=== PATIENT | male | born 1970 | race Caucasian/White ===

== ENCOUNTER 2018-11-01 16:46 | Inpatient (IN) | payer OTHER ==
[2018-11-01 18:04] VITALS: BMI 25.7
[2018-11-01] MEDS ORDERED: chlordiazePOXIDE HCL 25 MG CAPSULE PO PRN (18:42)
[2018-11-01] MEDS ORDERED: BISMUTH SUBSALICYLATE 524 MG/30 ML UD PO PRN (18:42)
[2018-11-01] MEDS ORDERED: ACETAMINOPHEN 325 MG TABLET (FP) PO PRN ×2 (18:42)
[2018-11-01] MEDS ORDERED: MAG HYDROX/AL HYDROX/SIMETH 30 ML UNIT-DOSE CUP PO PRN (18:42)
[2018-11-01] MEDS ORDERED: chlordiazePOXIDE HCL 25 MG CAPSULE PO ONE (18:42)
[2018-11-01] MEDS ORDERED: MENTHOL/PHENOL 1 EACH UD MM PRN (18:42)
[2018-11-01] MEDS ORDERED: MAGNESIUM CITRATE 300 ML BOTTLE PO PRN (18:42)
[2018-11-01] MEDS ORDERED: NICOTINE POLACRILEX 4 MG GUM BUC PRN (18:42)
[2018-11-01] MEDS ORDERED: hydrOXYzine PAMOATE 25 MG CAPSULE (FP) PO PRN (18:42)
[2018-11-01] MEDS ORDERED: METHOCARBAMOL 500 MG TABLET PO PRN (18:42)
[2018-11-01] MEDS ORDERED: IBUPROFEN 400 MG TABLET (FP) PO PRN (18:42)
[2018-11-01] MEDS ORDERED: MAGNESIUM HYDROX 2400MG/30ML ORAL SUSPENSION 30 ML CUP PO PRN (18:42)
[2018-11-01] MEDS ORDERED: NICOTINE 21 MG/24 HOURS TOPICAL PATCH TD SCH (18:45)
--- NOTE | 2018-11-01 18:51 | HP ---
CIWA Score Nausea/Vomitin Muscle Tremors: 4-Moderate,w/Arms Extend Anxiety: 4-Mod. Anxious/Guarded Agitation: 3 Paroxysmal Sweats: 2 Orientation: 0-Oriented Tacttile Disturbances: 1-Very Mild Itch/Numbness Auditory Disturbances: 2-Mild Harshness/Frighten Visual Disturbances: 2-Mild Sensitivity Headache: 1-Very Mild CIWA-Ar Total Score: 21 - Admission Criteria OASAS Guidelines: Admission for Medically Managed Detox: Requires at least one of the followin. CIWA greater than 12 2. Seizures within the past 24 hours 3. Delirium tremens within the past 24 hours 4. Hallucinations within the past 24 hours 5. Acute intervention needed for co occurring medical disorder 6. Acute intervention needed for co occurring psychiatric disorder 7. Severe withdrawal that cannot be handled at a lower level of care (continued vomiting, continued diarrhea, abnormal vital signs) requiring intravenous medication and/or fluids 8. Admission ROS BHS - HPI Chief Complaint: I NEED TO DETOX Allergies/Adverse Reactions: Allergies Allergy/AdvReac Type Severity Reaction Status Date / Time ARYAN Inhibitors AdvReac Swelling Verified 11/01/18 17:49 Penicillins AdvReac Swelling Verified 11/01/18 17:49 History of Present Illness: CONSITENT ETOH USE SINCE AGE 9 NO SIGNIFICANT PERIOD ABSTINENCE 1 MONTH MAX COCAINE USE 100$ 3X WEEKLY - Ebola screening Have you traveled outside of the country in the last 21 days: No (N) Have you had contact with anyone from an Ebola affected area: No Do you have a fever: No - Review of Systems Constitutional: Loss of Appetite EENT: reports: No Symptoms Reported Respiratory: reports: No Symptoms reported Cardiac: reports: No Symptoms Reported GI: reports: Nausea, Abdominal cramping : reports: No Symptoms Reported Musculoskeletal: reports: No Symptoms Reported Integumentary: reports: No Symptoms Reported Neuro: reports: No Symptoms reported Endocrine: reports: No Symptoms Reported Hematology: reports: No Symptoms Reported Psychiatric: reports: Anxious Patient History - Patient Medical History Hx Anemia: No Hx Asthma: No Hx Chronic Obstructive Pulmonary Disease (COPD): No Hx Cancer: No Hx Cardiac Disorders: No Hx Congestive Heart Failure: No Hx Hypertension: Yes Hx Hypercholesterolemia: No Hx Pacemaker: No HX Cerebrovascular Accident: No Hx Seizures: No Hx Dementia: No Hx Diabetes: No Hx Gastrointestinal Disorders: No Hx Liver Disease: No Hx Genitourinary Disorders: No Hx Sexually Transmitted Disorders: No Hx Renal Disease (ESRD): No Hx Thyroid Disease: No Hx Human Immunodeficiency Virus (HIV): No Hx Hepatitis C: No Hx Depression: Yes Hx Suicide Attempt: No Hx Schizophrenia: No - Patient Surgical History Past Surgical History: No Hx Neurologic Surgery: No Hx Cataract Extraction: No Hx Cardiac Surgery: No Hx Lung Surgery: No Hx Breast Surgery: No Hx Breast Biopsy: No Hx Abdominal Surgery: No Hx Appendectomy: No Hx Cholecystectomy: No Hx Genitourinary Surgery: No Hx Section: No Hx Orthopedic Surgery: No Anesthesia Reaction: No - PPD History Previous Implant?: Yes - Smoking Cessation Smoking history: Former smoker Have you smoked in the past 12 months: No Hx Chewing Tobacco Use: No Initiated information on smoking cessation: No - Substances abused Alcohol Substance route: Oral Frequency: Daily Amount used: 10 to 15 24 ounces of beers/ 2 pints of vodka Age of first use: 9 Date of last use: 10/30/18 Heroin Substance route: Inhalation Frequency: Daily Amount used: 1 bag Age of first use: 46 Date of last use: 10/30/18 Cocaine Substance route: Smoking Frequency: Daily Amount used: 50 dollars Age of first use: 18 Date of last use: 10/30/18 Family Disease History - Family Disease History Family Disease History: Other: Grandparent (ETOH), Father (") Admission Physical Exam BHS - Vital Signs Vital Signs: Vital Signs - 24 hr 11/01/18 17:44 Temperature 97.3 F L Pulse Rate 87 Respiratory 20 Rate Blood Pressure 137/92 - Physical General Appearance: Yes: Tremorous, Irritable, Sweating, Anxious HEENTM: Yes: EOMI Respiratory: Yes: Within Normal Limits Neck: Yes: Within Normal Limits Breast: Yes: Breast Exam Deferred Cardiology: Yes: Within Normal Limits Abdominal: Yes: Normal Bowel Sounds, Non Tender Genitourinary: Yes: Within Normal Limits Back: Yes: Within Normal Limits Musculoskeletal: Yes: Within Normal Limits Extremities: Yes: Within Normal Limits Neurological: 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: 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 NML intact, Alert, Motor Strength 5/5 Integumentary: Yes: Within Normal Limits - Diagnostic (1) Alcohol withdrawal Current Visit: Yes Status: Acute (2) Seizure disorder Current Visit: Yes Status: Chronic (3) Cocaine abuse Current Visit: Yes Status: Acute (4) Hypertension Current Visit: Yes Status: Chronic Breathalyzer - Breathalyzer Breathalyzer: 0 Urine Drug Screen - Test Device Lot number: [id number] Expiration date: 08/11/20 - Control Is test valid?: Yes - Results Drug screen NEGATIVE: No Urine drug screen results: IGGY-Cocaine, BZO-Benzodiazepines Inpatient Rehab Admission - Rehab Decision to Admit Inpatient rehab admission?: No
[2018-11-01] MEDS: cloNIDine HCL 0.1 MG TABLET PO SCH (22:10)
[2018-11-01] MEDS: levETIRAcetam 500 MG TABLET (FP) PO SCH (22:10)
[2018-11-01] MEDS: THIAMINE HCL 100 MG TABLET (FP) PO SCH (22:10)
[2018-11-01] MEDS: chlordiazePOXIDE HCL 25 MG CAPSULE PO SCH (22:10)
[2018-11-01] MEDS: MELATONIN 5 MG TABLETS PO PRN (22:11)
[2018-11-02] MEDS: chlordiazePOXIDE HCL 25 MG CAPSULE PO SCH ×4 (05:23→22:13)
--- NOTE | 2018-11-02 09:25 | EKG ---
Test Reason : Blood Pressure : / mmHG Vent. Rate : 080 BPM Atrial Rate : 080 BPM P-R Int : 146 ms QRS Dur : 082 ms QT Int : 378 ms P-R-T Axes : 060 058 050 degrees QTc Int : 435 ms NORMAL SINUS RHYTHM NORMAL ECG NO PREVIOUS ECGS AVAILABLE Confirmed by VITO HUANG MD ([id number]) on 11/02/2018 9:25:34 AM Referred By: ALEXANDER BETHEA Confirmed By:VITO HUANG MD
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
[2018-11-02] MEDS: levETIRAcetam 500 MG TABLET (FP) PO SCH ×2 (10:26→22:14)
[2018-11-02] MEDS: PRENATAL VITAMINS W/ FOLIC ACID TABLET (FP) PO SCH (10:26)
[2018-11-02] MEDS: cloNIDine HCL 0.1 MG TABLET PO SCH ×2 (10:29→22:15)
--- NOTE | 2018-11-02 11:25 | PN ---
S CIWA - CIWA Score Nausea/Vomitin-No Nausea/No Vomiting Muscle Tremors: 3 Anxiety: 3 Agitation: 3 Paroxysmal Sweats: 3 Orientation: 0-Oriented Tacttile Disturbances: 0-None Auditory Disturbances: 0-None Visual Disturbances: 0-None Headache: 0-None Present CIWA-Ar Total Score: 12 BHS Progress Note (SOAP) Subjective: sweats irritable agitation interrupted sleep body aches Objective: 11/02/18 11:24 Vital Signs Temperature 96.8 F L 11/02/18 09:20 Pulse Rate 75 11/02/18 09:20 Respiratory Rate 16 11/02/18 09:20 Blood Pressure 118/58 L 11/02/18 09:20 O2 Sat by Pulse Oximetry (%) pending labs aaox3 ambulating no acute distress Assessment: 11/02/18 11:25 withdrawal sx Plan: continue detox increase fluids pending labs
[2018-11-02 12:03] LABS: HEMATOCRIT 39.2 % (35.4-49); MCH 28.6 pg (25.7-33.7); MCHC 33.2 g/dl (32.0-35.9); MEAN CELL VOLUME 86.1 fl (80-96); MEAN PLT VOLUME 7.6 fl (7.5-11.1); PLATELET COUNT 266 K/MM3 (134-434); RBC 4.55 M/mm3 (4.00-5.60); RDW 14.2 % (11.9-15.9); WHITE BLOOD COUNT 4.4 K/mm3 (4.0-10.0)
[2018-11-02 12:16] LABS: ALBUMIN 3.8 g/dl (3.4-5.0); BILIRUBIN,TOTAL 1.1 mg/dL (0.2-1); BLOOD UREA NITROGEN 8.3 mg/dL (7-18); CREATININE 0.9 mg/dL (0.55-1.3); POTASSIUM 3.9 mmol/L (3.5-5.1); TOT PROT 7.4 g/dl (6.4-8.2)
[2018-11-02] MEDS: LOPERAMIDE HCL 2 MG CAPSULE PO PRN (14:37)
[2018-11-02] MEDS ORDERED: COLLOIDAL OATMEAL 1 BAR EACH TP PRN (19:21)
[2018-11-02] MEDS: MIRTAZAPINE 15 MG TABLET (FP) PO SCH (22:14)
[2018-11-02] MEDS: THIAMINE HCL 100 MG TABLET (FP) PO SCH (22:14)
[2018-11-02] MEDS: QUEtiapine FUMARATE 100 MG TABLET (FP) PO SCH (22:15)
[2018-11-02] MEDS: MELATONIN 5 MG TABLETS PO PRN (22:15)
[2018-11-03] MEDS: chlordiazePOXIDE HCL 25 MG CAPSULE PO SCH ×4 (05:39→22:04)
--- NOTE | 2018-11-03 10:12 | PN ---
[facility] CIWA - CIWA Score Nausea/Vomitin-No Nausea/No Vomiting Muscle Tremors: 2 Anxiety: 2 Agitation: 3 Paroxysmal Sweats: 2 Orientation: 0-Oriented Tacttile Disturbances: 0-None Auditory Disturbances: 0-None Visual Disturbances: 0-None Headache: 0-None Present CIWA-Ar Total Score: 9 S Progress Note (SOAP) Subjective: diarrhea sweats shakes interrupted sleep Objective: 11/03/18 10:07 Vital Signs Temperature 97.2 F L 11/03/18 09:49 Pulse Rate 68 11/03/18 09:49 Respiratory Rate 18 11/03/18 09:49 Blood Pressure 108/67 11/03/18 09:49 O2 Sat by Pulse Oximetry (%) Laboratory Tests 11/02/18 11/02/18 11/02/18 07:00 07:00 07:00 WBC 4.4 RBC 4.55 Hgb 13.0 Hct 39.2 MCV 86.1 MCH 28.6 MCHC 33.2 RDW 14.2 Plt Count 266 MPV 7.6 Sodium 137 Potassium 3.9 Chloride 104 Carbon Dioxide 26 Anion Gap 7 L BUN 8.3 Creatinine 0.9 Est GFR (CKD-EPI)AfAm 116.65 Est GFR (CKD-EPI)NonAf 100.64 Random Glucose 92 Calcium 9.0 Total Bilirubin 1.1 H AST 19 ALT 30 Alkaline Phosphatase 79 Total Protein 7.4 Albumin 3.8 RPR Titer Nonreactive today pt is aaox3 ambulating no acute distress Assessment: 11/03/18 10:13 withdrawal sx Plan: continue detox increase fluids
[2018-11-03] MEDS: PRENATAL VITAMINS W/ FOLIC ACID TABLET (FP) PO SCH (10:35)
[2018-11-03] MEDS: levETIRAcetam 500 MG TABLET (FP) PO SCH ×2 (10:35→22:04)
[2018-11-03] MEDS: LOPERAMIDE HCL 2 MG CAPSULE PO PRN ×2 (10:38→16:54)
[2018-11-03] MEDS: cloNIDine HCL 0.1 MG TABLET PO SCH ×2 (10:39→22:03)
--- NOTE | 2018-11-03 13:54 | PN ---
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 Pt states she felt no effect of the medication only that it burned. Pt was assessed and no s/s of redness or swelling to nostril nares. pt was apologetic and promised never to do that again. When asked why did she do that, she said someone on the unit told her that she can get a better effect. now she know that was wrong and bad advise.
[2018-11-03] MEDS: hydrOXYzine PAMOATE 50 MG CAPSULE (FP) PO PRN (14:57)
[2018-11-03] MEDS: QUEtiapine FUMARATE 100 MG TABLET (FP) PO SCH (22:03)
[2018-11-03] MEDS: MIRTAZAPINE 15 MG TABLET (FP) PO SCH (22:03)
[2018-11-03] MEDS: THIAMINE HCL 100 MG TABLET (FP) PO SCH (22:04)
[2018-11-03] MEDS: MELATONIN 5 MG TABLETS PO PRN (22:04)
[2018-11-04] MEDS ORDERED: chlordiazePOXIDE HCL 10 MG CAPSULE PO PRN
[2018-11-04] MEDS: chlordiazePOXIDE HCL 10 MG CAPSULE PO SCH ×4 (05:37→22:20)
[2018-11-04] MEDS: PRENATAL VITAMINS W/ FOLIC ACID TABLET (FP) PO SCH (10:28)
[2018-11-04] MEDS: levETIRAcetam 500 MG TABLET (FP) PO SCH ×2 (10:28→22:20)
[2018-11-04] MEDS: cloNIDine HCL 0.1 MG TABLET PO SCH ×2 (10:28→22:20)
--- NOTE | 2018-11-04 12:11 | PN ---
S CIWA - CIWA Score Nausea/Vomitin-No Nausea/No Vomiting Muscle Tremors: 3 Anxiety: 2 Agitation: 1-Slight > Activity Paroxysmal Sweats: 2 Orientation: 0-Oriented Tacttile Disturbances: 0-None Auditory Disturbances: 0-None Visual Disturbances: 0-None Headache: 0-None Present CIWA-Ar Total Score: 8 BHS Progress Note (SOAP) Subjective: tired feeling better no diarrhea Objective: 11/04/18 12:10 Vital Signs Temperature 98.1 F 11/04/18 09:21 Pulse Rate 107 H 11/04/18 09:21 Respiratory Rate 18 11/04/18 09:21 Blood Pressure 113/75 11/04/18 09:21 O2 Sat by Pulse Oximetry (%) aaox3 ambulating no acute distress Assessment: 11/04/18 12:11 mild withdrawal sx Plan: continue detox increase fluids
[2018-11-04] MEDS: hydrOXYzine PAMOATE 50 MG CAPSULE (FP) PO PRN (14:42)
--- NOTE | 2018-11-04 19:05 | PN ---
S Progress Note (SOAP) Subjective: States having difficulty swallowing. States was told, prior to admission, had a yeast infection in throat and H-Pylori. C/o (L) and mid-quad pain. Watery dark BM's. Objective: Alert and oriented. LUQ and Mid-quad tenderness upon palpation. No rebound. No guarding. Abd soft. BS hyperactive Tongue w/ whitish patches. No Pharyngeal lesions or swelling noted. Lungs CTA. Neck supple. No masses palpated. Vital Signs 11/04/18 11/04/18 17:15 22:00 Temperature 97.0 F L 97.9 F Pulse Rate 74 75 Respiratory 18 18 Rate Blood Pressure 90/61 111/63 Laboratory Last Values WBC 4.4 K/mm3 (4.0-10.0) 11/02/18 07:00 RBC 4.55 M/mm3 (4.00-5.60) 11/02/18 07:00 Hgb 13.0 GM/dL (11.7-16.9) 11/02/18 07:00 Hct 39.2 % (35.4-49) 11/02/18 07:00 MCV 86.1 fl (80-96) 11/02/18 07:00 MCH 28.6 pg (25.7-33.7) 11/02/18 07:00 MCHC 33.2 g/dl (32.0-35.9) 11/02/18 07:00 RDW 14.2 % (11.9-15.9) 11/02/18 07:00 Plt Count 266 K/MM3 (134-434) 11/02/18 07:00 MPV 7.6 fl (7.5-11.1) 11/02/18 07:00 Sodium 137 mmol/L (136-145) 11/02/18 07:00 Potassium 3.9 mmol/L (3.5-5.1) 11/02/18 07:00 Chloride 104 mmol/L (98-107) 11/02/18 07:00 Carbon Dioxide 26 mmol/L (21-32) 11/02/18 07:00 Anion Gap 7 MMOL/L (8-16) L 11/02/18 07:00 BUN 8.3 mg/dL (7-18) 11/02/18 07:00 Creatinine 0.9 mg/dL (0.55-1.3) 11/02/18 07:00 Est GFR (CKD-EPI)AfAm 116.65 11/02/18 07:00 Est GFR (CKD-EPI)NonAf 100.64 11/02/18 07:00 Random Glucose 92 mg/dL (74-106) 11/02/18 07:00 Calcium 9.0 mg/dL (8.5-10.1) 11/02/18 07:00 Total Bilirubin 1.1 mg/dL (0.2-1) H 11/02/18 07:00 AST 19 U/L (15-37) 11/02/18 07:00 ALT 30 U/L (13-61) 11/02/18 07:00 Alkaline Phosphatase 79 U/L (45-117) 11/02/18 07:00 Total Protein 7.4 g/dl (6.4-8.2) 11/02/18 07:00 Albumin 3.8 g/dl (3.4-5.0) 11/02/18 07:00 RPR Titer Nonreactive (NONREACTIVE) 11/02/18 07:00 Labs reviewed. Assessment: Alcohol withdrawal Abdominal tenderness. r/o acid reflux Plan: Notify staff of any difficulty breathing. Mycelex troches Protonix 20 mg Po BID Encourage f/u w/ PCP upon discharge and patient states he will f/u.
[2018-11-04] MEDS: MIRTAZAPINE 15 MG TABLET (FP) PO SCH (22:20)
[2018-11-04] MEDS: QUEtiapine FUMARATE 100 MG TABLET (FP) PO SCH (22:20)
[2018-11-04] MEDS: THIAMINE HCL 100 MG TABLET (FP) PO SCH (22:21)
[2018-11-04] MEDS: PANTOPRAZOLE 20 MG TABLET (FP) PO SCH (22:21)
[2018-11-04] MEDS: MELATONIN 5 MG TABLETS PO PRN (22:21)
[2018-11-05] MEDS ORDERED: chlordiazePOXIDE HCL 10 MG CAPSULE PO SCH (05:00)
[2018-11-05] MEDS: CLOTRIMAZOLE 10 MG TROCHE (FP) PO SCH ×2 (07:00→07:03)
[2018-11-05 09:32] VITALS: BP 122/75; PULSE 72; TEMP 97.7
[2018-11-05] MEDS: cloNIDine HCL 0.1 MG TABLET PO SCH (10:09)
[2018-11-05] MEDS: PRENATAL VITAMINS W/ FOLIC ACID TABLET (FP) PO SCH (10:09)
[2018-11-05] MEDS: levETIRAcetam 500 MG TABLET (FP) PO SCH (10:09)
[2018-11-05] MEDS: PANTOPRAZOLE 20 MG TABLET (FP) PO SCH (10:10)
[2018-11-05] MEDS: hydrOXYzine PAMOATE 50 MG CAPSULE (FP) PO PRN (10:13)
--- NOTE | 2018-11-05 10:38 | DS ---
[facility] Detox Discharge Summary Admission Date: 11/01/18 Discharge Date: 11/05/18 - History Present History: Alcohol Dependence, Cocaine Dependence, Opioid Dependence - Physical Exam Results Vital Signs: Vital Signs Temperature 97.7 F 11/05/18 09:31 Pulse Rate 72 11/05/18 09:31 Respiratory Rate 18 11/05/18 09:31 Blood Pressure 122/75 11/05/18 09:31 O2 Sat by Pulse Oximetry (%) Pertinent Admission Physical Exam Findings: pt arrived in withdrawals Laboratory Tests 11/02/18 11/02/18 11/02/18 07:00 07:00 07:00 WBC 4.4 RBC 4.55 Hgb 13.0 Hct 39.2 MCV 86.1 MCH 28.6 MCHC 33.2 RDW 14.2 Plt Count 266 MPV 7.6 Sodium 137 Potassium 3.9 Chloride 104 Carbon Dioxide 26 Anion Gap 7 L BUN 8.3 Creatinine 0.9 Est GFR (CKD-EPI)AfAm 116.65 Est GFR (CKD-EPI)NonAf 100.64 Random Glucose 92 Calcium 9.0 Total Bilirubin 1.1 H AST 19 ALT 30 Alkaline Phosphatase 79 Total Protein 7.4 Albumin 3.8 RPR Titer Nonreactive pt is aaox3 ambulating no acute distress - Treatment Hospital Course: Detox Protocol Followed, Detoxed Safely, Responded well, Discharged Condition Good, Rehab Referral Accepted - Medication Discharge Medications: Ambulatory Orders Mirtazapine 30 mg PO HS 11/01/18 Quetiapine Fumarate [Seroquel] 400 mg PO HS 11/01/18 Clotrimazole [Mycelex -] 10 mg PO 5XD #50 lubna 11/05/18 Pantoprazole Sodium [Protonix -] 20 mg PO BID #60 tablet.ec 11/05/18 cloNIDine HCL [Catapres -] 0.2 mg PO BID #60 tablet 11/05/18 levETIRAcetam [Keppra -] 500 mg PO BID #60 tablet 11/05/18 - Diagnosis (1) Alcohol dependence, uncomplicated Current Visit: Yes Status: Chronic (2) Cocaine abuse Current Visit: Yes Status: Acute (3) Cocaine dependence Current Visit: Yes Status: Chronic Qualifiers: Substance use status: uncomplicated Qualified Code(s): F14.20 - Cocaine dependence, uncomplicated (4) Opioid dependence, uncomplicated Current Visit: Yes Status: Chronic (5) Substance induced mood disorder Current Visit: Yes Status: Acute (6) Substance-induced sleep disorder Current Visit: Yes Status: Acute (7) HTN (hypertension) Current Visit: Yes Status: Chronic Qualifiers: Hypertension type: essential hypertension Qualified Code(s): I10 - Essential (primary) hypertension (8) Hypertension Current Visit: Yes Status: Chronic Qualifiers: Hypertension type: essential hypertension Qualified Code(s): I10 - Essential (primary) hypertension (9) Schizophrenia Current Visit: Yes Status: Chronic (10) Seizure disorder Current Visit: Yes Status: Suspected - AMA Did Patient Leave Against Medical Advice: No (referred to [facility] outpatient rehab)
[2018-11-06] MEDS ORDERED: chlordiazePOXIDE HCL 10 MG CAPSULE PO ONE (05:00)
== END 2018-11-05 12:17 | disposition home or self-care (01) | DRG 773 ==
LOC: YASAS 16:46 → Y6N 18:41
PROVIDERS: ADMIT Surgery; ATTEND Surgery
PROC: HZ2ZZZZ Detoxification Services for Substance Abuse Treatment (ICD-10-PCS; principal; 2018-11-01)
DX: F11.23 Opioid dependence with withdrawal (principal); F10.230 Alcohol dependence with withdrawal, uncomplicated; F14.20 Cocaine dependence, uncomplicated; F19.24 Other psychoactive substance dependence with psychoactive substance-induced mood disorder; F19.282 Other psychoactive substance dependence with psychoactive substance-induced sleep disorder; F20.9 Schizophrenia, unspecified; I10 Essential (primary) hypertension; G40.909 Epilepsy, unspecified, not intractable, without status epilepticus; R10.9 Unspecified abdominal pain; Z87.891 Personal history of nicotine dependence; Z88.0 Allergy status to penicillin
CPT/HCPCS: 36415; 80053; 85027; 86593; 93005; 93010; J0735

== ENCOUNTER 2022-12-11 16:17 | Inpatient (IN) | payer OTHER ==
[2022-12-11 17:24] VITALS: BMI 21.1
[2022-12-11] MEDS ORDERED: NICOTINE POLACRILEX 2 MG GUM BUC PRN (19:30)
[2022-12-11] MEDS ORDERED: DICYCLOMINE HCL 10 MG CAPSULE PO PRN (19:30)
[2022-12-11] MEDS ORDERED: IBUPROFEN 600 MG TABLET (FP) PO PRN (19:30)
[2022-12-11] MEDS ORDERED: BENZOCAINE/MENTHOL (CHLORASEPTIC ) LOZENGE MM PRN (19:30)
[2022-12-11] MEDS ORDERED: NALOXONE HCL 0.4 MG/ML VIAL IM PRN (19:30)
[2022-12-11] MEDS ORDERED: MAG HYDROX/AL HYDROX/SIMETH 30 ML UNIT-DOSE CUP PO PRN (19:30)
[2022-12-11] MEDS ORDERED: POLYETHYLENE GLYCOL (HEALTHYLAX) 3350 17 GM PACKET PO PRN (19:30)
[2022-12-11] MEDS ORDERED: chlordiazePOXIDE HCL 25 MG CAPSULE PO PRN (19:30)
[2022-12-11] MEDS ORDERED: BENZONATATE 200 MG CAPSULE PO PRN (19:30)
[2022-12-11] MEDS ORDERED: guaiFENesin 600 MG TABLET.ER (FP) PO PRN (19:30)
[2022-12-11] MEDS ORDERED: ACETAMINOPHEN 325 MG TABLET (FP) PO PRN (19:30)
[2022-12-11] MEDS ORDERED: IBUPROFEN 400 MG TABLET (FP) PO PRN (19:30)
[2022-12-11] MEDS ORDERED: ONDANSETRON *ODT* 4 MG TABLET SL PRN (19:30)
[2022-12-11] MEDS ORDERED: NALOXONE HCL (KLOXXADO) 8 MG SPRAY NS PRN (19:30)
[2022-12-11] MEDS ORDERED: BISMUTH SUBSALICYLATE 524 MG/30 ML PO PRN (19:30)
[2022-12-11] MEDS ORDERED: MAGNESIUM HYDROX 2400MG/30ML ORAL SUSPENSION 30 ML CUP PO PRN (19:30)
[2022-12-11] MEDS: METHOCARBAMOL 500 MG TABLET PO PRN (20:47)
[2022-12-11] MEDS: hydrOXYzine PAMOATE 25 MG CAPSULE (FP) PO PRN (20:47)
[2022-12-11] MEDS: THIAMINE HCL 100 MG TABLET (FP) PO SCH (22:50)
[2022-12-11] MEDS: chlordiazePOXIDE HCL 25 MG CAPSULE PO SCH (22:51)
[2022-12-11] MEDS: MELATONIN 5 MG TABLETS PO SCH (22:52)
[2022-12-11] MEDS: LOPERAMIDE HCL 2 MG CAPSULE PO PRN (22:52)
[2022-12-12] MEDS: chlordiazePOXIDE HCL 25 MG CAPSULE PO SCH ×4 (05:09→22:17)
[2022-12-12] MEDS: METHOCARBAMOL 500 MG TABLET PO PRN (10:20)
[2022-12-12] MEDS: PRENATAL VITAMINS W/ FOLIC ACID TABLET (FP) PO SCH (10:20)
[2022-12-12] MEDS: hydrOXYzine PAMOATE 25 MG CAPSULE (FP) PO PRN (10:20)
[2022-12-12] MEDS: PANTOPRAZOLE 20 MG TABLET PO SCH ×2 (10:21→22:17)
[2022-12-12] MEDS: levETIRAcetam 500 MG TABLET (FP) PO SCH ×2 (10:25→22:17)
[2022-12-12 10:40] LABS: HEMATOCRIT 40.3 % (35.4-49); HEMOGLOBIN 13.6 GM/dL (11.7-16.9); MCH 30.1 pg (25.7-33.7); MCHC 33.8 g/dl (32.0-35.9); MEAN PLT VOLUME 7.3 fl (7.5-11.1); PLATELET COUNT 321 10^3/uL (134-434); RBC 4.53 M/mm3 (4.00-5.60); RDW 13.5 % (11.9-15.9); WHITE BLOOD COUNT 5.4 K/mm3 (4.0-10.0)
[2022-12-12 10:41] LABS: POTASSIUM 4.3 mmol/L (3.5-5.1)
[2022-12-12 10:44] LABS: ALBUMIN 3.5 g/dl (3.4-5.0); CALCIUM 8.9 mg/dL (8.5-10.1)
[2022-12-12 10:45] LABS: BLOOD UREA NITROGEN 15.6 mg/dL (7-18)
[2022-12-12 10:49] LABS: BILIRUBIN,TOTAL 0.5 mg/dL (0.2-1); TOT PROT 6.9 g/dl (6.4-8.2)
[2022-12-12] MEDS: LOPERAMIDE HCL 2 MG CAPSULE PO PRN (17:41)
[2022-12-12] MEDS ORDERED: QUEtiapine FUMARATE 200 MG TABLET PO SCH (22:00)
[2022-12-12] MEDS: THIAMINE HCL 100 MG TABLET (FP) PO SCH (22:17)
[2022-12-12] MEDS: MELATONIN 5 MG TABLETS PO SCH (22:18)
[2022-12-13] MEDS: chlordiazePOXIDE HCL 25 MG CAPSULE PO SCH ×2 (05:21→10:08)
[2022-12-13 09:28] VITALS: BP 109/71; PULSE 91; RESP 16; TEMP 98.1
[2022-12-13] MEDS: PRENATAL VITAMINS W/ FOLIC ACID TABLET (FP) PO SCH (10:08)
[2022-12-13] MEDS: PANTOPRAZOLE 20 MG TABLET PO SCH (10:08)
[2022-12-13] MEDS: levETIRAcetam 500 MG TABLET (FP) PO SCH (10:08)
[2022-12-14] MEDS ORDERED: chlordiazePOXIDE HCL 10 MG CAPSULE PO PRN
[2022-12-14] MEDS ORDERED: chlordiazePOXIDE HCL 10 MG CAPSULE PO SCH (05:00)
[2022-12-15] MEDS ORDERED: chlordiazePOXIDE HCL 10 MG CAPSULE PO SCH (05:00)
[2022-12-16] MEDS ORDERED: chlordiazePOXIDE HCL 10 MG CAPSULE PO ONE (05:00)
== END 2022-12-13 01:02 | disposition home or self-care (01) | DRG 775 ==
LOC: YASAS 16:17 → Y6N 20:19
PROVIDERS: ADMIT Allergy & Immunology; ATTEND Surgery
PROC: HZ2ZZZZ Detoxification Services for Substance Abuse Treatment (ICD-10-PCS; principal; 2022-12-11)
DX: F10.230 Alcohol dependence with withdrawal, uncomplicated (principal); F17.210 Nicotine dependence, cigarettes, uncomplicated; F20.9 Schizophrenia, unspecified; F10.280 Alcohol dependence with alcohol-induced anxiety disorder; F10.282 Alcohol dependence with alcohol-induced sleep disorder; F10.24 Alcohol dependence with alcohol-induced mood disorder; G40.909 Epilepsy, unspecified, not intractable, without status epilepticus; K21.9 Gastro-esophageal reflux disease without esophagitis; E11.9 Type 2 diabetes mellitus without complications; Z62.810 Personal history of physical and sexual abuse in childhood; Z86.73 Personal history of transient ischemic attack (TIA), and cerebral infarction without residual deficits; Z88.0 Allergy status to penicillin; Z88.8 Allergy status to other drugs, medicaments and biological substances
CPT/HCPCS: 36415; 80053; 85027; 86780; 87635